=== PATIENT | female | born 1940 | race Caucasian/White ===

== ENCOUNTER 2020-12-08 10:01 | Emergency (ER) | payer BC ==
[~2020-12-08] VITALS: Ht 154.9 cm; Wt 62.0 kg
[2020-12-08] MEDS ORDERED: ACETAMINOPHEN WITH CODEINE 300/30MG TABLET PO ONE (13:15)
[2020-12-08 13:17] VITALS: BP 176/76
[2020-12-08] MEDS ORDERED: ACETAMINOPHEN 325MG TABLET PO ONE (13:30)
== END 2020-12-08 15:15 | disposition home or self-care (01) ==
LOC: ER 10:01
DX: M25.561 Pain in right knee (principal); X50.1XXA Overexertion from prolonged static or awkward postures, initial encounter; Y93.89 Activity, other specified; Y92.9 Unspecified place or not applicable; Z88.3 Allergy status to other anti-infective agents; Z88.6 Allergy status to analgesic agent; Z90.710 Acquired absence of both cervix and uterus; Z91.013 Allergy to seafood; Z91.048 Other nonmedicinal substance allergy status; Z98.890 Other specified postprocedural states
CPT/HCPCS: 73560; 99283; L1830